=== PATIENT | male | born 2000 | race African-American/Black ===

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

== ENCOUNTER 2018-01-03 13:05 | Emergency (ER) | payer MEDICAID ==
[2018-01-03 13:11] VITALS: BP 101/66
--- NOTE | 2018-01-03 13:22 | ER Document Report ---
HPI - HPI Patient complains to provider of: suture removal Pain Level: Denies Context: 17 yo male here for suture removal lateral right foot over the 5th MTP joint. placed 3 weeks ago. Associated Symptoms: None Exacerbated by: Denies Relieved by: Denies - ROS ROS below otherwise negative: Yes Systems Reviewed and Negative: Yes All other systems reviewed and negative Past Medical History - General Information source: Patient - Social History Smoking Status: Never Smoker Frequency of alcohol use: None Drug Abuse: None Lives with: Family Family History: Reviewed & Not Pertinent - Medical History Medical History: Negative Renal/ Medical History: Denies: Hx Peritoneal Dialysis Surgical Hx: Negative Vertical Provider Document - CONSTITUTIONAL Agree With Documented VS: Yes Exam Limitations: No Limitations General Appearance: No Apparent Distress - INFECTION CONTROL TRAVEL OUTSIDE OF THE [place] IN LAST 30 DAYS: No - NEURO Level of Consciousness: Awake, Alert Motor/Sensory: No Motor Deficit, No Sensory Deficit - DERM Integumentary: Laceration - healed laceration with some wet skin over the 5th right MTP joint, told pt that the upper layer that is white will peal. Course - Vital Signs Vital signs: Temp Pulse Resp BP Pulse Ox 98.4 F 83 16 101/66 98 01/03/18 13:10 01/03/18 13:10 01/03/18 13:10 01/03/18 13:10 01/03/18 13:10 Discharge - Discharge Clinical Impression: Right fifth MTP suture removal Condition: Good Disposition: HOME, SELF-CARE Instructions: Suture Removal Additional Instructions: Some skin will peel off Return to the emergency room any concerns
== END 2018-01-03 13:36 | disposition home or self-care (01) ==
LOC: ER 13:05
DX: S91.311D Laceration without foreign body, right foot, subsequent encounter (principal); X58.XXXD Exposure to other specified factors, subsequent encounter